=== PATIENT | female | born 1980 | race Two or more races ===

== ENCOUNTER 2017-03-21 13:24 | Emergency (ER) | payer MEDICAID ==
[~2017-03-21] VITALS: Ht 167.6 cm; Wt 72.4 kg
[2017-03-21] MEDS ORDERED: SODIUM CHLORIDE FLUSH 10ML SYR IVF ONE (15:00)
[2017-03-21] MEDS ORDERED: ONDANSETRON 2MG/ML, 2ML IVPush ONE (15:00)
[2017-03-21] MEDS ORDERED: SODIUM CHLORIDE 0.9% 1,000ML IVBOLUS ONE (15:00)
[2017-03-21 15:50] LABS: HEMATOCRIT 45.7 % (34.6-47.8); HEMOGLOBIN 15.4 g/dL (11.7-16.4); WHITE BLOOD COUNT 5.9 x10^3/uL (3.4-10)
[2017-03-21 15:58] LABS: BLOOD UREA NITROGEN 10 mg/dL (7-18)
[2017-03-21 17:48] VITALS: BP 104/74
== END 2017-03-21 18:38 ==
LOC: ED 15:44
DX: O26.891 Other specified pregnancy related conditions, first trimester (principal); R55 Syncope and collapse; O21.9 Vomiting of pregnancy, unspecified; R11.0 Nausea; O21.0 Mild hyperemesis gravidarum; Z3A.08 8 weeks gestation of pregnancy
CPT/HCPCS: 36415; 76830; 80048; 81003; 82040; 84703; 85025; 86901; 93005; 99285; J7030

== ENCOUNTER 2017-06-16 08:58 | Observation (INO) | payer MEDICAID ==
[~2017-06-16] VITALS: Ht 165.1 cm; Wt 62.0 kg
[2017-06-16 09:19] VITALS: BP 98/64
[2017-06-16 09:29] LABS: CULTURE INDICATED? YES; MICROSCOPIC INDICATED
[2017-06-16 09:39] LABS: AMPHETAMINE SCREEN, URINE Negative (Negative); BARBITURATE SCREEN, URINE Negative (Negative); BENZODIAZEPINE SCREEN, URINE Negative (Negative); CANNABINOID SCREEN, URINE Negative (Negative); COCAINE SCREEN, URINE Negative (Negative); METHADONE SCREEN, URINE Negative (Negative); OPIATE SCREEN, URINE Negative (Negative)
[2017-06-16 10:26] LABS: BASOPHILS # (AUTO) 0.01 x10^3/uL (0-0.1); BASOPHILS % (AUTO) 0 % (0-1); EOSINOPHILS # (AUTO) 0.03 x10^3/uL (0-0.4); EOSINOPHILS % (AUTO) 1 % (1-7); LYMPHOCYTES # (AUTO) 0.97 x10^3/uL (1-3.4); LYMPHOCYTES % (AUTO) 15 % (22-44); MD NO; MEAN CORPUSCULAR HEMOGLOBIN 30.6 pg (27.0-34.8); MEAN CORPUSCULAR HGB CONC 33.4 g/dL (32.4-35.8); MEAN CORPUSCULAR VOLUME 91.7 fL (80-100); MEAN PLATELET VOLUME 7.4 fL (7.4-10.4); MONOCYTES # (AUTO) 0.55 x10^3/uL (0.2-0.8); MONOCYTES % (AUTO) 9 % (2-9); NEUTROPHILS # (AUTO) 4.91 x10^3/uL (1.8-6.8); NEUTROPHILS % (AUTO) 76 % (42-75); PLATELET COUNT 245 x10^3/uL (130-400); RED BLOOD COUNT 4.17 x10^6/uL (3.82-5.3); RED CELL DISTRIBUTION WIDTH 13.4 % (9.6-15.2)
== END 2017-06-16 12:01 | disposition home or self-care (01) ==
LOC: LDOP 08:58 → LDIP 10:07
PROVIDERS: ADMIT Obstetrics & Gynecology; ATTEND Obstetrics & Gynecology
DX: O26.892 Other specified pregnancy related conditions, second trimester (principal); R10.9 Unspecified abdominal pain; Z3A.20 20 weeks gestation of pregnancy
CPT/HCPCS: 36415; 59025; 76805; 80307; 81001; 85025; 86592; 86762; 86850; 86900; 87086; 87340; 87806; 99201; G0378; G0463; G0475

== ENCOUNTER 2017-09-06 03:10 | Outpatient (CLI) | payer MEDICAID ==
[~2017-09-06] VITALS: Ht 165.1 cm; Wt 67.3 kg
[2017-09-06 03:43] LABS: MICROSCOPIC INDICATED
[2017-09-06 03:49] LABS: AMPHETAMINE SCREEN, URINE Negative (Negative); BARBITURATE SCREEN, URINE Negative (Negative); BENZODIAZEPINE SCREEN, URINE Negative (Negative); CANNABINOID SCREEN, URINE Positive (Negative); COCAINE SCREEN, URINE Negative (Negative); METHADONE SCREEN, URINE Negative (Negative); OPIATE SCREEN, URINE Negative (Negative)
[2017-09-06] MEDS ORDERED: LACTATED RINGERS 1,000 ML IVBOLUS ONE (04:00)
[2017-09-06 04:28] LABS: BASOPHILS # (AUTO) 0.01 x10^3/uL (0-0.1); BASOPHILS % (AUTO) 0 % (0-1); EOSINOPHILS # (AUTO) 0.05 x10^3/uL (0-0.4); EOSINOPHILS % (AUTO) 1 % (1-7); LYMPHOCYTES % (AUTO) 21 % (22-44); MD NO; MEAN CORPUSCULAR HEMOGLOBIN 28.5 pg (27.0-34.8); MEAN CORPUSCULAR HGB CONC 32.7 g/dL (32.4-35.8); MEAN CORPUSCULAR VOLUME 87.3 fL (80-100); MEAN PLATELET VOLUME 7.3 fL (7.4-10.4); MONOCYTES # (AUTO) 0.85 x10^3/uL (0.2-0.8); MONOCYTES % (AUTO) 13 % (2-9); NEUTROPHILS # (AUTO) 4.38 x10^3/uL (1.8-6.8); NEUTROPHILS % (AUTO) 66 % (42-75); PLATELET COUNT 255 x10^3/uL (130-400); RED BLOOD COUNT 4.14 x10^6/uL (3.82-5.3); RED CELL DISTRIBUTION WIDTH 14.1 % (9.6-15.2)
[2017-09-06] MEDS ORDERED: TERBUTALINE 1 MG/ML, 1ML ONE (04:36)
[2017-09-06 04:38] LABS: ALANINE AMINOTRANSFERASE 26 U/L (12-78); ALBUMIN 2.7 g/dL (3.4-5.0); ANION GAP 7 mmol/L (5-15); CALCIUM 8.4 mg/dL (8.5-10.1); CHLORIDE 109 mmol/L (98-107); CREATININE 0.63 mg/dL (0.55-1.02)
[2017-09-06 04:40] LABS: ALKALINE PHOSPHATASE 99 U/L (45-117); BILIRUBIN,TOTAL 0.3 mg/dL (0.2-1.0)
[2017-09-06] MEDS ORDERED: TERBUTALINE 1 MG/ML, 1ML SQ ONE (05:00)
== END 2017-09-06 09:19 | disposition home or self-care (01) ==
LOC: LDOP 03:10
PROVIDERS: ATTEND Obstetrics & Gynecology
DX: O26.893 Other specified pregnancy related conditions, third trimester (principal); M54.9 Dorsalgia, unspecified; Z3A.00 Weeks of gestation of pregnancy not specified
CPT/HCPCS: 36415; 59025; 80053; 80307; 81001; 85025; 87086; 96360; 99211; J3105; J7120; G0463

== ENCOUNTER 2017-09-09 03:55 | Outpatient (CLI) | payer MEDICAID ==
[~2017-09-09] VITALS: Ht 165.1 cm; Wt 67.2 kg
[2017-09-09] MEDS ORDERED: LACTATED RINGERS 1,000 ML IV SCH (04:15)
[2017-09-09] MEDS ORDERED: TERBUTALINE 1 MG/ML, 1ML ONE (04:20)
[2017-09-09] MEDS ORDERED: TERBUTALINE 1 MG/ML, 1ML SQ PRN (04:30)
== END 2017-09-09 05:40 | disposition home or self-care (01) ==
LOC: LDOP 03:55
PROVIDERS: ATTEND Obstetrics & Gynecology
DX: O9A.413 Sexual abuse complicating pregnancy, third trimester (principal); Z3A.32 32 weeks gestation of pregnancy
CPT/HCPCS: 59025; 87086; 96372; 99211; J3105; J7120; G0463

== ENCOUNTER 2019-05-28 20:42 | Emergency (ER) | payer MEDICAID ==
[~2019-05-28] VITALS: Ht 160 cm; Wt 57.1 kg
--- NOTE | 2019-05-28 22:48 | NUR ---
PT TO ED WITH C/O FLANK PAIN "I DONT KNOW WHCIH SIDE", PRESSURE WITH URINATION, DENIES PAIN OR BURNING WITH URINATION. PT REPORTS COUGH AND CONGESTION X2 DAYS, DENIES SOB OR CP. CALL LIGHT WITHIN REACH, VSS. FAMILY AT BS FOR SUPPORT.
--- NOTE | 2019-05-28 22:55 | NUR ---
PT TO BR WITH STEADY GAIT.
[2019-05-28 23:37] LABS: CULTURE INDICATED? NO; HCG UR SG 1.024 (1.003-1.030); MICROSCOPIC NOT IND
[2019-05-28 23:54] VITALS: BP 108/83
== END 2019-05-29 00:17 | disposition home or self-care (01) ==
LOC: ED 23:50
DX: R05 Cough (principal); R30.0 Dysuria; J02.9 Acute pharyngitis, unspecified; R09.81 Nasal congestion
CPT/HCPCS: 81003; 81025; 99283

== ENCOUNTER 2020-07-09 00:47 | Emergency (ER) | payer MEDICAID ==
[~2020-07-09] VITALS: Ht 167.6 cm; Wt 58.2 kg
--- NOTE | 2020-07-09 01:08 | NUR ---
"MY FACE HURTS AND ITS SWOLLEN" LEFT SIDE BY LIP AND UP TO EYE REGION NOTED, X2DAYS. pt denies any trauma to the area, states she has a missing tooth on that side and it may be from that. pt resting on [facility] placed on spo2/bp monitoring, [facility]. 6 PILLS OF ALIEVE @2015 400MG IBUPROFEN @2015
[2020-07-09 01:27] VITALS: BP 120/79
[2020-07-09] MEDS ORDERED: OXYcodone/APAP 5/325MG TABLET ONE (01:28)
[2020-07-09] MEDS ORDERED: OXYcodone/APAP 5/325MG TABLET PO ONE (01:30)
--- NOTE | 2020-07-09 01:37 | NUR ---
PT MEDICATED PER MAR FOR PAIN, NAD, STANDING IN ROOM DUE TO DISCOMFORT, VSS, NO CHANGE IN CONDITION AT THIS TIME. WCTM.
--- NOTE | 2020-07-09 01:56 | NUR ---
Patient given discharge instructions and they have confirmed that they understand the instructions. Patient ambulatory with steady gait. NAD, PROVIDED DENTAL REFERENCE LIST, NO PERSONAL BELONGINGS LEFT IN ROOM AFTER DC. REPORTS THAT SHE HAS A FRIEND PROVIDING HER A RIDE HOME.
== END 2020-07-09 01:58 | disposition home or self-care (01) ==
LOC: ED 01:15
DX: K02.9 Dental caries, unspecified (principal); K08.89 Other specified disorders of teeth and supporting structures
CPT/HCPCS: 99283